=== PATIENT | female | born 2000 | race Two or more races ===

== ENCOUNTER → 2018-05-17 | Outpatient (CLI) | payer BC ==
--- NOTE | 2018-05-17 13:40 | KCIC ---
MR of the left knee Indication: Anterolateral knee pain. Pain for 5 years. Knee gives out when walking. Comparison: None are available. Technique: The standard multiplanar sequences are obtained. FINDINGS: Artifact: No significant image degradation. Medial meniscus:Intact. Lateral meniscus: Intact. Anterior cruciate ligament: Intact. Posterior cruciate ligament: Intact Medial collateral ligament: Intact. Lateral structures: * Iliotibial band: Intact. * Lateral collateral ligament: Intact. * Biceps femoris tendon: Intact * Popliteus tendon attachment: Intact Extensive mechanism: * Patellar tendon: Intact * Quadriceps tendon: Intact * Retinacular structures: Intact Fluid: Small joint effusion. No significant Purvis's cyst. Intra-articular bodies: None visualized Joint compartments * patellofemoral joint:Intact * medial compartment:Intact * lateral compartment:Intact Bones: No significant lesion or acute fracture. Soft tissue: Unremarkable Impression: No evidence of meniscal tear or internal derangement. Electronically signed by: Dada Abbasi MD (05/17/2018 1:36 PM) [id number]
== END | disposition home or self-care (01) ==
LOC: KCIC MRI 12:18
PROVIDERS: ATTEND Orthopaedic Surgery Sports Medicine
DX: M25.462 Effusion, left knee (principal)
CPT/HCPCS: 73721

== ENCOUNTER 2018-10-19 10:48 | Emergency (ER) | payer BC ==
[~2018-10-19] VITALS: Ht 162.6 cm; Wt 102.5 kg
[2018-10-19] MEDS ORDERED: HYDROcodone/APAP 5/325MG 1 TAB TABLET PO ONE ×2 (12:30→15:45)
[2018-10-19] MEDS ORDERED: LIDOCAINE 1% Multi-Dose 20 ML VIAL. INJ ONE (12:30)
[2018-10-19] MEDS ORDERED: DIPHTH,PERTUSS(ACELL),TET TOX 0.5 ML DISP.SYRIN. VAX IM ONE (12:30)
[2018-10-19] MEDS ORDERED: IV RINGERS,LACTATED 1000ML 1,000 ML IV SCH ×2 (12:50→13:58)
--- NOTE | 2018-10-19 12:54 | PDOC1 ---
History and Physical Date of Admission Date of Admission DATE: 10/19/18 TIME: 12:48 Identification/Chief Complaint Chief Complaint perirectal pain Source Source: Caregiver, Patient History of Present Illness History of Present Illness Daisy is a 17 yo girl sent from her PCP's office for a second episode of pain and induration in the perianal area. She responded to antibiotic therapy before but has not this time. No previous surgical treatment Past Medical History Cardiovascular: No pertinent hx Pulmonary: No pertinent hx Past Surgical History Past Surgical History: No pertinent history Family History Family History: No Significant Social History Smoke: No ALCOHOL: none Drugs: None Current Medications Current Medications Current Medications Lidocaine HCl (Lidocaine 1% 20ml Vial) 20 ml 1X ONCE INJ Last administered on 10/19/18at 12:17; Start 10/19/18 at 12:30; Stop 10/19/18 at 12:31; Status DC Acetaminophen/ Hydrocodone Bitart (Lortab 5/325) 1 tab 1X ONCE PO Last administered on 10/19/18at 12:17; Start 10/19/18 at 12:30; Stop 10/19/18 at 12:31; Status DC Diphtheria/ Tetanus/Acell Pertussis (Boostrix) 0.5 ml ONCE ONCE VAX IM Last administered on 10/19/18at 12:16; Start 10/19/18 at 12:30; Stop 10/19/18 at 12:31; Status DC Allergies Allergies: Coded Allergies: No Known Drug Allergies (Unverified , 10/19/18) ROS Gastrointestinal: Yes Nausea, Yes Abdominal Pain Physical Exam General: Alert, Cooperative, No acute distress HEENT: Atraumatic Lungs: Normal air movement Heart: RRR Abdomen: Soft Rectal Exam: other (in the prone position there is an area of induration, redness and warmth that is exquisitly TTP and without obvious drainage) Vitals Vitals Vital Signs Date Time Temp Pulse Resp B/P (MAP) Pulse Ox O2 Delivery O2 Flow Rate FiO2 10/19/18 11:10 98.5 83 18 148/104 (119) 98 Room Air 98.5 VTE Prophylaxis Ordered VTE Prophylaxis Devices: Yes VTE Pharmacological Prophylaxi: No Assessment/Plan Assessment/Plan recurrent perirectal abscess I and D d/w Daisy and her mom she will proceed Daisy has not had anything to eat or drink since last noc ABA VALENTIN MD October 19, 2018 12:54
[2018-10-19] MEDS ORDERED: PROCHLORPERAZINE 10 MG/2 ML VIAL. IV PRN ×2 (13:00→14:00)
[2018-10-19] MEDS ORDERED: fentaNYL PF VIAL 100 MCG/2 ML VIAL IV PRN ×4 (13:00→14:00)
[2018-10-19] MEDS ORDERED: ONDANSETRON PF 4 MG/2 ML VIAL. IV PRN ×2 (13:00→14:00)
[2018-10-19] MEDS ORDERED: LIDOCAINE 1% PF 2 ML VIAL. ID PRN ×2 (13:00→14:00)
[2018-10-19] MEDS ORDERED: MORPHINE SULFATE 2 MG/ML VIAL. IV PRN ×2 (13:00→14:00)
[2018-10-19] MEDS ORDERED: HYDROmorphone 2 MG/ML VIAL IV PRN ×2 (13:00→14:00)
[2018-10-19] MEDS ORDERED: BUPIVAC MPF-EPI 0.5%-1:200000 30 ML VIAL. ONE (13:05)
--- NOTE | 2018-10-19 13:34 | PHYS DOC ---
Past Medical History Past Medical History: No Pertinent History Past Surgical History: No Surgical History Alcohol Use: None Drug Use: None Adult General Chief Complaint Chief Complaint: ABSCESS HPI HPI Patient is a 17 year old female who presents to the ED today with an abscess on her rectal region that she noted 2 days ago. Patient states she's had an abscess to the same place and was given antibiotics a couple years ago which cleared it. Patient denies any fever nausea vomiting. Review of Systems Review of Systems Constitutional: Denies fever or chills [] GI: Denies abdominal pain, nausea, vomiting, bloody stools or diarrhea [] : Denies dysuria or hematuria [] Musculoskeletal: Denies back pain or joint pain [] Integument: Rectal abscess Neurologic: Denies headache, focal weakness or sensory changes [] All other systems were reviewed and found to be within normal limits, except as documented in this note. Current Medications Current Medications Current Medications Medications (Trade) Dose Ordered Sig/Lilliana Start Time Stop Time Status Last Admin Dose Admin Acetaminophen/ Hydrocodone Bitart (Lortab 5/325) 1 tab 1X ONCE 10/19/18 12:30 10/19/18 12:31 DC 10/19/18 12:17 1 TAB Cefazolin Sodium/ Dextrose 50 ml @ 100 mls/hr 1X ONCE 10/19/18 13:30 10/19/18 13:59 Diphtheria/ Tetanus/Acell Pertussis (Boostrix) 0.5 ml ONCE ONCE 10/19/18 12:30 10/19/18 12:31 DC 10/19/18 12:16 0.5 ML Fentanyl Citrate (Fentanyl 2ml Vial) 50 mcg PRN Q5MIN PRN 10/19/18 13:00 10/20/18 12:59 Hydromorphone HCl (Dilaudid) 0.5 mg PRN Q10MIN PRN 10/19/18 13:00 10/20/18 12:59 Lidocaine HCl (Lidocaine 1% 20ml Vial) 20 ml 1X ONCE 10/19/18 12:30 10/19/18 12:31 DC 10/19/18 12:17 20 ML Lidocaine HCl (Xylocaine-Mpf 1% 2ml Vial) 2 ml PRN 1X PRN 10/19/18 13:00 10/20/18 12:59 Morphine Sulfate (Morphine Sulfate) 1 mg PRN Q10MIN PRN 10/19/18 13:00 10/20/18 12:59 Ondansetron HCl (Zofran) 4 mg PRN Q6HRS PRN 10/19/18 13:00 10/20/18 12:59 Prochlorperazine Edisylate (Compazine) 5 mg PACU PRN PRN 10/19/18 13:00 10/20/18 12:59 Ringer's Solution 1,000 ml @ 30 mls/hr Q24H 10/19/18 12:50 10/20/18 00:49 Allergies Allergies Allergies Coded Allergies Type Severity Reaction Last Updated Verified No Known Drug Allergies 10/19/18 No Physical Exam Physical Exam Constitutional: Well developed, well nourished, no acute distress, non-toxic appearance. [] Abdomen: Bowel sounds normal, soft, no tenderness, no masses, no pulsatile masses. [] Skin: Left inner gluteal area with a non indurated firm area. There is no drainage from the area. The area is warm very TTT. No anus involvement. Back: No tenderness, no CVA tenderness. [] Extremities: No tenderness, no cyanosis, no clubbing, ROM intact, no edema. [] Neurologic: Alert and oriented X 3, normal motor function, normal sensory function, no focal deficits noted. [] Psychologic: Affect normal, judgement normal, mood normal. [] Current Patient Data Vital Signs Vital Signs Date Time Temp Pulse Resp B/P (MAP) Pulse Ox O2 Delivery O2 Flow Rate FiO2 10/19/18 11:10 98.5 83 18 148/104 (119) 98 Room Air 98.5 Lab Values Laboratory Tests Test 10/19/18 13:12 POC Urine HCG, Qualitative Hcg negative (Negative) EKG EKG [] Radiology/Procedures Radiology/Procedures [] Course & Med Decision Making Course & Med Decision Making Pertinent Labs and Imaging studies reviewed. (See chart for details) Patient has a rectal abscess. Requesting surgery for drainage. 12:48 Dr. Nuñez came to the ED, evaluated patient and will take patient to surgery Nino Disclaimer Dragon Disclaimer This electronic medical record was generated, in whole or in part, using a voice recognition dictation system. Departure Departure Impression: Primary Impression: Karina-rectal abscess Disposition: 09 ADMITTED INPATIENT Condition: STABLE Referrals: GORDY GRACIA (PCP) ADRIAN SHELDON [employer] October 19, 2018 13:34
[2018-10-19] MEDS ORDERED: fentaNYL PF VIAL 100 MCG/2 ML VIAL ONE (14:16)
[2018-10-19] MEDS ORDERED: PROPOFOL 20 ML IV ONE (14:16)
[2018-10-19] MEDS ORDERED: DESFLURANE 16 TO 30 MINUTES. IH ONE (14:16)
[2018-10-19] MEDS ORDERED: SEVOFLURANE 16 TO 30 MINUTES. IH ONE (14:38)
[2018-10-19] MEDS ORDERED: ONDANSETRON PF 4 MG/2 ML VIAL. ONE (14:38)
[2018-10-19] MEDS ORDERED: DEXAMETHASONE SOD PHOS 4 MG/ML VIAL ONE (14:38)
--- NOTE | 2018-10-19 15:28 | DISCH ---
DISCHARGE INSTRUCTIONS Condition on Discharge Condition on Discharge: Stable Activity After Discharge Activity Instructions for Disc: Activity as tolerated, Avoid exertion Lifting Instructions after Dis: No heavy lifting Driving Instructions after Dis: Do not drive today Diet after Discharge Diet after Discharge: Regular Wound Incision Care Other wound/incision instructi: jannette durant Follow-Up Follow Up With: Joaquin Monday ABA VALENTIN MD October 19, 2018 15:28
--- NOTE | 2018-10-19 15:33 | PDOC ---
BRIEF OPERATIVE NOTE Date: October 19, 2018 Pre-Op Diagnosis perirectal abscess Post-Op Diagnosis same Procedure Performed incision and drainage Surgeon Joaquin Anesthesia Type: General (LMA) Blood Loss 10cc IV Fluid 500cc Specimens Obtained cultures Findings abscess Complications none Operative Note Wk # [id number] ABA VALENTIN MD October 19, 2018 15:33
[2018-10-19] MEDS ORDERED: HYDR-3164 PO (15:38)
[2018-10-19 15:43] VITALS: BP 117/70
[2018-10-19] MEDS ORDERED: HYDROcodone/APAP 5/325MG 1 TAB TABLET ONE (15:44)
--- NOTE | 2018-10-19 17:46 | OP ---
DATE OF SURGERY: 10/19/2018 PREOPERATIVE DIAGNOSIS: Perirectal abscess. POSTOPERATIVE DIAGNOSIS: Perirectal abscess. PROCEDURE: Incision and drainage. SURGEON: Aba Valentin MD. ANESTHESIA: General LMA. ESTIMATED BLOOD LOSS: 10 mL. INTRAVENOUS FLUID: 500 mL. DESCRIPTION OF PROCEDURE: The patient brought to the operating suite, given a general LMA, placed in the dorsal lithotomy position and the perineum and perianal area prepped and draped in usual sterile fashion. The area of induration and redness on the left side of the anal orifice was identified and opened, immediately extruding purulent drainage. The opening was extended slightly and digital exploration broke up loculations in the abscess. Cultures were made. Wound was irrigated and checked for hemostasis. When present, the wound was packed with quater-inch plain NuGauze soaked in saline. Sterile dressing applied. The patient taken out of the lithotomy position, awakened from her anesthetic and taken to the recovery room in satisfactory condition. ABA VALENTIN MD DR: FORTUNATO/nts JOB#: [id number] / [id number]
== END 2018-10-19 13:30 | disposition home or self-care (01) ==
LOC: ER 10:48
DX: K61.1 Rectal abscess (principal); R11.0 Nausea; R10.9 Unspecified abdominal pain
CPT/HCPCS: 46040; 81025; 87071; 87075; 87186; 90471; 90715; 96365; 99284; A7015; J0696; J1100; J2405; J2704; J3010; J3490; 99285; A4461

== ENCOUNTER → 2019-10-18 | Outpatient (CLI) | payer BC, OTHER ==
[~2019-10-18] MED LIST: DOCU-109 PO; HYDR-3164 PO; IBUP-1060 PO
[2019-10-18 10:29] LABS: HEMATOCRIT 36.1 % (36.0-47.0); HEMOGLOBIN 12.2 g/dL (12.0-15.5); RED BLOOD COUNT 4.29 x10^6/uL (3.50-5.40); RED CELL DISTRIBUTION WIDTH 13.4 % (11.5-14.5)
[2019-10-18 10:44] LABS: ALBUMIN 2.7 g/dL (3.4-5.0); ALBUMIN/GLOBULIN RATIO 0.7 (1.0-1.7); CALCIUM 8.8 mg/dL (8.5-10.1); CREATININE 0.5 mg/dL (0.6-1.0); GFR 157.3; POTASSIUM 3.8 mmol/L (3.5-5.1); TOTAL BILIRUBIN 0.6 mg/dL (0.2-1.0); TOTAL PROTEIN 6.7 g/dL (6.4-8.2)
== END | disposition home or self-care (01) ==
LOC: LAB 09:52
PROVIDERS: ATTEND Obstetrics & Gynecology
DX: Z34.93 Encounter for supervision of normal pregnancy, unspecified, third trimester (principal); Z3A.37 37 weeks gestation of pregnancy
CPT/HCPCS: 36415; 80053; 83615; 84550; 85027

== ENCOUNTER 2019-10-29 17:28 | Inpatient (IN) | payer BC, OTHER ==
[~2019-10-29] VITALS: Ht 162.6 cm; Wt 117.0 kg
[~2019-10-29 17:28] MED LIST changes: -DOCU-109 PO; -IBUP-1060 PO
[2019-10-29 18:12] VITALS: BP 160/75
[2019-10-29] MEDS ORDERED: PENICILLIN G K 5,000,000 UNIT in IV DEXTROSE 5% 100ML 100 ML IV ONE (18:15)
[2019-10-29] MEDS ORDERED: OXYTOCIN 30 UNIT/500 ML PREMIX 500 ML IV PRN ×2 (18:15)
[2019-10-29] MEDS ORDERED: TERBUTALINE 1 MG/ML VIAL. SQ PRN (18:15)
[2019-10-29] MEDS ORDERED: ONDANSETRON PF 4 MG/2 ML VIAL. IVP PRN (18:15)
[2019-10-29] MEDS ORDERED: LIDOCAINE 1% PF 30 ML VIAL. INJ PRN (18:15)
[2019-10-29] MEDS ORDERED: 0.9 % SODIUM CHLORIDE 10 ML DISP.SYRIN. IV PRN (18:15)
[2019-10-29] MEDS ORDERED: fentaNYL PF VIAL 100 MCG/2 ML VIAL IVP PRN (18:15)
[2019-10-29 18:27] LABS: BILIRUBIN,URINE NEGATIVE (NEG); CLARITY,URINE CLOUDY; COLOR,URINE YELLOW; NITRITE,URINE NEGATIVE (NEG); PH,URINE 6.5 (<5.0-8.0); PROTEIN,URINE 100 mg/dL (NEG-TRACE); UROBILINOGEN,URINE 0.2 mg/dL (0.2 mg/dL)
[2019-10-29 18:28] LABS: BASO % 0 % (0-3); EOS % 0 % (0-3); HEMOGLOBIN 11.2 g/dL (12.0-15.5); LYMPH # 1.5 x10^3/uL (1.0-4.8); LYMPH % 13 % (24-48); MEAN CORPUSCULAR HEMOGLOBIN 28 pg (25-35); MEAN CORPUSCULAR HGB CONC 34 g/dL (31-37); MEAN CORPUSCULAR VOLUME 83 fL (79-100); MONO # 0.9 x10^3/uL (0.0-1.1); MONO % 8 % (0-9); NEUT # 8.9 x10^3/uL (1.8-7.7); NEUT % 78 % (31-73); PLATELET COUNT 217 x10^3/uL (140-400); RED BLOOD COUNT 3.97 x10^6/uL (3.50-5.40); RED CELL DISTRIBUTION WIDTH 14.4 % (11.5-14.5); WHITE BLOOD COUNT 11.3 x10^3/uL (4.0-11.0)
[2019-10-29 18:35] LABS: BACTERIA,URINE MODERATE /HPF (0-FEW); RBC,URINE OCC /HPF (0-2); SQUAMOUS EPITHELIAL CELL,UR MOD /LPF; WBC,URINE 20-40 /HPF (0-4)
[2019-10-29] MEDS: IV RINGERS,LACTATED 1000ML 1,000 ML IV PRN (18:44)
--- NOTE | 2019-10-29 19:57 | PDOC1 ---
[employer] H&P Date of Admission: Date of Admission: October 29, 2019 at 17:28 History of Present Illness: EDC: 11/02/19 LMP: 01/27/19 HPI: 18y @ 39.2 by L=7 presents to L&D with LOF. The pt was found to be grossly ruptured. The pt was 3 cm dilated on presentation. After an hours time the pt remained unchanged so she was started on Pit for augmentation. 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 PSH: Correction of kidney reflux, I&D of perirectal abscess, tonsils, ear tubes Meds: PNV All: NKDA OBHx: G1 SH: no tob, no EtOH FH: noncontributory Past Medical History: Cardiovascular: No pertinent hx Pulmonary: No pertinent hx Past Surgical History: No pertinent history Social History: ALCOHOL: none Drugs: None Medications: Meds: Current Medications Medications (Trade) Dose Ordered Sig/Lilliana Route PRN Reason Start Time Stop Time Status Last Admin Dose Admin Ringer's Solution 1,000 ml @ 125 mls/hr Q8H PRN IV PER PROTOCOL 10/29/19 18:15 10/29/19 18:44 Oxytocin/Sodium Chloride 500 ml @ 0 mls/hr CONT PRN IV SEE I/O RECORD 10/29/19 18:15 10/29/19 19:47 Penicillin G Potassium [id number] unit/Dextrose 100 ml @ 100 mls/hr 1X ONCE IV 10/29/19 18:15 10/29/19 19:14 DC 10/29/19 18:44 Allergies: Coded Allergies: No Known Drug Allergies (Unverified , 10/19/18) Physical Exam: Vital Signs: Vital Signs Date Time Temp Pulse Resp B/P (MAP) Pulse Ox O2 Delivery O2 Flow Rate FiO2 10/29/19 18:12 99.7 115 20 160/75 (103) 99.7 FHT: 120s +acels/no decels/mLTV [place]: 6-8 min SVE: 3/50/-3 PE: GENERAL: No apparent distress. Alert and oriented. HEENT: Head normocephalic, atraumatic. NECK: Supple LUNGS: Clear to auscultation. HEART: RRR, S1, S2 present, pulses intact ABDOMEN: Soft, positive bowel sounds. EXTREMITIES: No cyanosis or edema. NEUROLOGIC: Normal speech, normal tone PSYCHIATRIC: Normal affect, normal mood. SKIN: No ulceration. Labs: Laboratory Tests Test 10/29/19 18:10 White Blood Count 11.3 x10^3/uL (4.0-11.0) H Red Blood Count 3.97 x10^6/uL (3.50-5.40) Hemoglobin 11.2 g/dL (12.0-15.5) L Hematocrit 33.0 % (36.0-47.0) L Mean Corpuscular Volume 83 fL (79-100) Mean Corpuscular Hemoglobin 28 pg (25-35) Mean Corpuscular Hemoglobin Concent 34 g/dL (31-37) Red Cell Distribution Width 14.4 % (11.5-14.5) Platelet Count 217 x10^3/uL (140-400) Neutrophils (%) (Auto) 78 % (31-73) H Lymphocytes (%) (Auto) 13 % (24-48) L Monocytes (%) (Auto) 8 % (0-9) Eosinophils (%) (Auto) 0 % (0-3) Basophils (%) (Auto) 0 % (0-3) Neutrophils # (Auto) 8.9 x10^3/uL (1.8-7.7) H Lymphocytes # (Auto) 1.5 x10^3/uL (1.0-4.8) Monocytes # (Auto) 0.9 x10^3/uL (0.0-1.1) Eosinophils # (Auto) 0.0 x10^3/uL (0.0-0.7) Basophils # (Auto) 0.0 x10^3/uL (0.0-0.2) Urine Collection Type Unknown Urine Color Yellow Urine Clarity Cloudy Urine pH 6.5 (<5.0-8.0) Urine Specific [place] 1.025 (1.000-1.030) Urine Protein 100 mg/dL (NEG-TRACE) Urine Glucose (UA) Negative mg/dL (NEG) Urine Ketones (Stick) Negative mg/dL (NEG) Urine Blood Negative (NEG) Urine Nitrite Negative (NEG) Urine Bilirubin Negative (NEG) Urine Urobilinogen Dipstick 0.2 mg/dL (0.2 mg/dL) Urine Leukocyte Esterase Moderate (NEG) Urine RBC Occ /HPF (0-2) Urine WBC 20-40 /HPF (0-4) Urine Squamous Epithelial Cells Mod /LPF Urine Bacteria Moderate /HPF (0-FEW) Urine Mucus Marked /LPF Treponema pallidum Antibody Nonreactive (Nonreactive) Laboratory Tests 10/29/19 18:10 Laboratory Tests 10/29/19 18:10 Assessment & Plan: A/P 18y @ 39.2 by L=7 1.) SROM started on Pit for augmentation 2.) Elevated BP Initial BP elevated, repeat nml, no s/s of preeclampsia, if elevated again will obtain PIH labs 3.) Elevated GTT (131) - 3hr GTT wnl (only one value elevated) 4.) s/p Flu in Mar 5.) TDAP given 08/09/19 6.) Fetus cat I FHT, vtx 7.) GBS pos on PCN LOLI MASON MD October 29, 2019 19:57
[2019-10-29 20:54] LABS: CREATININE,RANDOM URINE 213.9 mg/dL (Not Establ.)
[2019-10-29 21:18] LABS: ALBUMIN 2.7 g/dL (3.4-5.0); ALBUMIN/GLOBULIN RATIO 0.8 (1.0-1.7); CALCIUM 8.4 mg/dL (8.5-10.1); CREATININE 0.6 mg/dL (0.6-1.0); GFR 127.5; POTASSIUM 3.9 mmol/L (3.5-5.1); TOTAL BILIRUBIN 0.5 mg/dL (0.2-1.0); URIC ACID 4.7 mg/dL (2.6-6.0)
[2019-10-29] MEDS: PENICILLIN G K 2,500,000 UNIT in IV DEXTROSE 5% 50 ML IV SCH (22:50)
[2019-10-30] MEDS ORDERED: ROPIVacaine 0.2% PF 10 ML VIAL. ONE ×2 (01:42→02:00)
[2019-10-30] MEDS ORDERED: L&D EPIDURAL SYRINGE 50 ML ONE (01:42)
[2019-10-30] MEDS ORDERED: IV RINGERS,LACTATED 1000ML 1,000 ML IV SCH (01:44)
[2019-10-30] MEDS ORDERED: NALOXONE 0.4 MG/ML VIAL. IV PRN (01:45)
[2019-10-30] MEDS ORDERED: fentaNYL PF VIAL 100 MCG/2 ML VIAL EPID PRN (01:45)
[2019-10-30] MEDS ORDERED: ROPIVacaine 0.2% PF 10 ML VIAL. EPID PRN (01:45)
[2019-10-30] MEDS: IV RINGERS,LACTATED 1000ML 1,000 ML IV PRN (01:45)
[2019-10-30] MEDS ORDERED: L&D EPIDURAL SYRINGE 50 ML EPID PRN (01:45)
[2019-10-30] MEDS ORDERED: BUPIVACAINE MPF 0.25% 30 ML VIAL. EPID PRN (01:45)
[2019-10-30] MEDS: PENICILLIN G K 2,500,000 UNIT in IV DEXTROSE 5% 50 ML IV SCH (03:12)
--- NOTE | 2019-10-30 04:53 | PDOC ---
VAGINAL DELIVERY DATE DATE: 10/30/19 TIME: 04:53 TIME Patient delivered a viable male infant over intact perineum at 0442. Wt 8lb 10oz. Apgars 8/9. Placenta delivered spontaneously, intact with 3VC. 1 degree laceration noted, repaired with 2'0 vicryl in nml fashion. Good hemostasis noted. 20U of Pitocin infused with IVF. EBL 200cc. WEIGHT Weight [ ] LOLI MASON MD October 30, 2019 04:53
[2019-10-30] MEDS ORDERED: diphenhydrAMINE HCL 25 MG CAPSULE PO PRN (05:00)
[2019-10-30] MEDS ORDERED: 0.9 % SODIUM CHLORIDE 10 ML DISP.SYRIN. IV PRN (05:00)
[2019-10-30] MEDS ORDERED: ACETAMINOPHEN 325 MG TABLET. PO PRN (05:00)
[2019-10-30] MEDS ORDERED: ZOLPIDEM 5 MG TABLET. PO PRN (05:00)
[2019-10-30] MEDS ORDERED: BENZOCAINE 20% TOPICAL AEROSOL SPRAY 57GM CAN. TP PRN (05:00)
[2019-10-30] MEDS ORDERED: TDaP (Adacel) per PROTOCOL. MC PRN (05:00)
[2019-10-30] MEDS ORDERED: PHENYLEPH/MINERAL OIL/PETROLAT RECTAL OINTMENT TUBE. RC PRN (05:00)
[2019-10-30] MEDS ORDERED: HYDROCORTISONE 1% TOPICAL OINTMENT 30GM TUBE. TP PRN (05:00)
[2019-10-30] MEDS ORDERED: MMR per PROTOCOL. MC PRN (05:00)
[2019-10-30] MEDS ORDERED: MAGNESIUM HYDROXIDE 2,400 MG/30 ML ORAL.SUSP. PO PRN (05:00)
[2019-10-30] MEDS ORDERED: IBUPROFEN 400 MG TABLET. PO PRN (05:00)
[2019-10-30] MEDS ORDERED: oxyCODONE/APAP 5/325 1 TAB TABLET PO PRN (05:00)
[2019-10-30] MEDS ORDERED: DOCUSATE SODIUM 100 MG CAPSULE. PO PRN (05:00)
[2019-10-30] MEDS ORDERED: OXYTOCIN 30 UNIT/500 ML PREMIX 500 ML IV PRN (05:00)
[2019-10-30] MEDS ORDERED: SIMETHICONE 80 MG TAB.CHEW PO PRN (05:00)
[2019-10-30] MEDS ORDERED: MAG HYDROX/ALUMINUM HYD/SIMETH 30 ML ORAL.SUSP PO PRN (05:00)
[2019-10-30 09:30] VITALS: BP 108/74
[2019-10-30 10:30] VITALS: BP 110/77
[2019-10-30 14:55] VITALS: BP 107/74
[2019-10-30 18:30] VITALS: BP 123/70
[2019-10-30 23:04] VITALS: BP 110/69
[2019-10-31 02:27] VITALS: BP 119/79
[2019-10-31 05:34] VITALS: BP 125/71
[2019-10-31 05:52] LABS: HEMATOCRIT 31.2 % (36.0-47.0); HEMOGLOBIN 10.5 g/dL (12.0-15.5)
--- NOTE | 2019-10-31 07:04 | NUR ---
IP: Pt is COVID negative.
[2019-10-31] MEDS ORDERED: FERROUS SULFATE 325 MG TABLET. PO SCH (08:00)
[2019-10-31] MEDS ORDERED: IBUP-1060 PO (08:40)
[2019-10-31] MEDS ORDERED: DOCU-109 PO (08:40)
--- NOTE | 2019-10-31 09:52 | PDOC ---
FOLLOW UP CLERK PROGRESS NOTE Subjective: Pt with good pain control. Dave PO. Voiding. Minimal lochia. Denies YEBOAH, changes in vision, or abd pain Objective: Objective: FFNT below umb no C/C/E Vital Signs: Vital Signs Date Time Temp Pulse Resp B/P (MAP) Pulse Ox O2 Delivery O2 Flow Rate FiO2 10/30/19 09:30 98.6 101 18 108/74 (85) 96 Room Air 98.6 Vital Signs Date Time Temp Pulse Resp B/P (MAP) Pulse Ox O2 Delivery O2 Flow Rate FiO2 10/31/19 05:34 97.9 82 18 125/71 (89) 96 Room Air 97.9 Labs: Laboratory Tests Test 10/31/19 04:45 Hemoglobin 10.5 g/dL (12.0-15.5) L Hematocrit 31.2 % (36.0-47.0) L Mean Corpuscular Hemoglobin Concent 34 g/dL (31-37) Laboratory Tests 10/31/19 04:45 Laboratory Tests 10/31/19 04:45 Physical Exam: GENERAL: No apparent distress. Alert and oriented. HEENT: Head normocephalic, atraumatic. NECK: Supple LUNGS: Clear to auscultation. HEART: RRR, S1, S2 present, pulses intact ABDOMEN: Soft, positive bowel sounds. EXTREMITIES: No cyanosis or edema. NEUROLOGIC: Normal speech, normal tone PSYCHIATRIC: Normal affect, normal mood. SKIN: No ulceration. Assessment & Plan: A/P 18y PPD #1 s/p 1.) PP doing well 2.) GHTN only one severe BP, nml since delivery, no s/s of preeclampsia, PIH labs wnl, random Pr/Cr 0.296 3.) Hgb11.2 -> 10.5 4.) s/p Flu in Mar 5.) s/p TDAP given 08/09/19 6.) Cont PP care LOLI MASON MD October 31, 2019 09:52
[2019-10-31 11:23] VITALS: BP 122/79
[2019-10-31 17:55] VITALS: BP 117/75
[2019-10-31 20:00] VITALS: BP 119/70
--- NOTE | 2019-11-01 09:44 | PDOC ---
INSOLE BEVELER PROGRESS NOTE Subjective: Pt with good pain control. Dave PO. Voiding. Minimal lochia. Denies YEBOAH, changes in vision, or abd pain Objective: Vital Signs: Vital Signs Date Time Temp Pulse Resp B/P (MAP) Pulse Ox O2 Delivery O2 Flow Rate FiO2 10/31/19 11:23 98.4 88 18 122/79 (93) 98 Room Air 98.4 Vital Signs Date Time Temp Pulse Resp B/P (MAP) Pulse Ox O2 Delivery O2 Flow Rate FiO2 11/01/19 08:25 Room Air 10/31/19 20:00 98.9 85 20 119/70 (86) 98 98.9 Physical Exam: GENERAL: No apparent distress. Alert and oriented. HEENT: Head normocephalic, atraumatic. NECK: Supple LUNGS: Clear to auscultation. HEART: RRR, S1, S2 present, pulses intact ABDOMEN: Soft, positive bowel sounds. EXTREMITIES: No cyanosis or edema. NEUROLOGIC: Normal speech, normal tone PSYCHIATRIC: Normal affect, normal mood. SKIN: No ulceration. FFNT below umb no C/C/E Assessment & Plan: A/P 18y PPD #2 s/p 1.) PP doing well 2.) GHTN only one severe BP, nml since delivery, no s/s of preeclampsia, PIH labs wnl, random Pr/Cr 0.296 3.) Hgb11.2 -> 10.5 4.) s/p Flu in Mar 09.) s/p TDAP given 08/09/19 6.) D/C home LOLI MASON MD November 01, 2019 09:44
--- NOTE | 2019-11-01 10:58 | DS ---
DATE OF DISCHARGE: 11/01/2019 ADMISSION DIAGNOSES: 1. Intrauterine at 39 weeks and 2 days by last menstrual period equal to 7-week ultrasound. 2. Spontaneous rupture of membranes. 3. Elevated 1-hour glucose tolerance test with normal 3-hour glucose tolerance test. 4. Group B strep positive. DISCHARGE DIAGNOSES: 1. Intrauterine at 39 weeks and 2 days by last menstrual period equal to 7-week ultrasound. 2. Spontaneous rupture of membranes. 3. Elevated 1-hour glucose tolerance test with normal 3-hour glucose tolerance test. 4. Group B strep positive. 5. Gestational hypertension. PROCEDURE: Spontaneous vaginal delivery. BRIEF HOSPITAL COURSE: The patient is a 18-year-old 1, para 0, who presented to Labor and Delivery at 39 weeks and 2 days by LMP equal to 7-week ultrasound with leakage of fluid. The patient was found to be grossly ruptured. The patient was 3 cm on presentation. After an hour's time, the patient remained unchanged. She was started on Pitocin for augmentation. The patient ultimately progressed to complete and delivered by vaginal delivery, see delivery note for full detail. Of note, her initial blood pressure was severe range. The rest of her blood pressures remained normal. Since the patient had had an episode of elevated blood pressure in the office a few weeks prior, [facility] labs were sent. All of them returned normal and her random urine [id number] ratio was found to be less than 0.3. Therefore, the patient was not started on magnesium. By day #2, the patient was meeting all discharge criteria and desired home. Of note, her hemoglobin on admission was 11.2 and after delivery was found to be 10.5. DISCHARGE INSTRUCTIONS: The patient was told not to lift anything greater than 20 pounds, have pelvic rest for 6 weeks. CALL IF: The patient is to call if she had fevers, chills, nausea, vomiting, abdominal pain or any additional questions or concerns. FOLLOWUP APPOINTMENT: The patient is to follow up on 11/28 at 9:30 a.m. for a appointment. DISCHARGE MEDICATIONS: The patient was given a prescription for Motrin 800 mg 30 pills and Colace 100 mg 30 pills. LOLI MASON MD DR: NGOZI/joselo JOB#: [id number] / [id number] ALIYA
== END 2019-11-01 10:55 | disposition home or self-care (01) | DRG 807 ==
LOC: OBSVTOIN 17:28 → 3 SO LND 17:28 → 3 NORTH 10-30 09:00
PROVIDERS: ADMIT Obstetrics & Gynecology; ATTEND Obstetrics & Gynecology
PROC: 10E0XZZ Delivery of Products of Conception, External Approach (ICD-10-PCS; principal; 2019-10-30)
PROC: 0HQ9XZZ Repair Perineum Skin, External Approach (ICD-10-PCS; 2019-10-30)
DX: O13.4 Gestational [pregnancy-induced] hypertension without significant proteinuria, complicating childbirth (principal); Z37.0 Single live birth; O70.0 First degree perineal laceration during delivery; O99.824 Streptococcus B carrier state complicating childbirth; Z20.828 Contact with and (suspected) exposure to other viral communicable diseases; Z3A.39 39 weeks gestation of pregnancy
CPT/HCPCS: 36415; 80053; 81001; 82570; 83615; 84156; 84550; 85014; 85018; 85025; 86592; 86850; 86900; 86901; 87086; J2405; J2540; J2590; J2795; J3010; J7060; J7120; G0378; U0003-CS